=== PATIENT | female | born 1965 | race Caucasian/White ===

== ENCOUNTER 2017-11-06 09:37 | Emergency (ER) | payer OTHER ==
[~2017-11-06 09:37] MED LIST: IBUP-2213 PO
[2017-11-06] MEDS ORDERED: TETRACAINE HCL/PF 0.5% OPTH 4 ML BTL ONE (10:25)
[2017-11-06] MEDS ORDERED: ACETAMINOPHEN EXTRA STRENGTH 500 MG TAB ONE (11:15)
== END 2017-11-06 11:31 | disposition home or self-care (01) ==
LOC: MED 09:37
DX: H11.32 Conjunctival hemorrhage, left eye (principal); E11.9 Type 2 diabetes mellitus without complications; E78.5 Hyperlipidemia, unspecified
CPT/HCPCS: 70450; 99284